=== PATIENT | female | born 1970 | race Asian ===

== ENCOUNTER 2023-03-26 10:36 | Outpatient (REF) | payer OTHER, SELFPAY ==
--- NOTE | ~2023-03-26 | XR_ITS ---
EXAMINATION: XR ANKLE, LEFT CLINICAL INFORMATION: Lateral left ankle pain. COMPARISON: None available. TECHNIQUE: AP, lateral, and mortise views of the left ankle. FINDINGS: Prominent lateral soft tissue swelling. No displaced fracture. Tiny tibiotalar marginal osteophytes. Lucency at the medial aspect of the talar dome measuring up to 0.4 cm in ML dimension, consistent with an osteochondral lesion. No evidence of fragmentation or instability. Plantar and dorsal calcaneal spurs. XR/XR ankle LT min 3V IMPRESSION: 1. Prominent lateral soft tissue swelling without displaced fracture. 2. Mild tibiotalar osteoarthritis. Osteochondral lesion at the medial aspect of the talar dome measuring up to 0.4 cm. 3. Plantar and dorsal calcaneal spurs.
== END 2023-03-26 10:37 | disposition home or self-care (01) ==
LOC: HO.XRAY 10:36
PROVIDERS: PCP Internal Medicine; Visit Provider Internal Medicine
DX: M25.572 Pain in left ankle and joints of left foot (principal)
CPT/HCPCS: 73610